=== PATIENT | female | born 2005 | race Caucasian/White ===

== ENCOUNTER 2025-04-07 20:32 | Emergency (ER) | payer OTHER ==
[~2025-04-07] VITALS: Ht 162.6 cm; Wt 60.0 kg
[~2025-04-07 20:32] MED LIST: CYCL10TA21 PO; DIAZ5TAB PO; LACO150T2 PO; LAM2 MT; LEVE1000 PO; PROP20TA7 PO; TETR12.52 PO; [UNRECOGNIZED DRUG - CODE]
[2025-04-07 20:37] VITALS: O2SAT 100
[2025-04-07 21:11] VITALS: BP 112/64; PULSE 102; RESP 13; TEMP 37.2; O2SAT 99
[2025-04-07 21:56] LABS: BASOPHILS % 0.3 % (0.0-2.0); EOSINOPHILS % 1.9 % (0.0-5.0); HEMATOCRIT. 35.0 % (36.0-48.0); HEMOGLOBIN. 11.9 g/dL (12.0-16.0); LYMPHOCYTES % 33.0 % (20.0-50.0); MEAN PLATELET VOLUME 7.9 fl (7.4-10.4); MONOCYTES % 5.4 % (2.0-8.0); NEUTROPHILS % 59.4 % (40.0-76.0); PLATELET 224 x1000/uL (130-400); RED BLOOD CELL COUNT 3.65 mill/uL (4.2-5.4); RED CELL DISTRIBUTION WIDTH 13.2 % (11.6-14.6)
[2025-04-07 22:16] LABS: HCG SCREEN NEGATIVE
[2025-04-07 22:17] LABS: INR 1.0
[2025-04-07 22:20] LABS: CREATININE 0.7 mg/dL (0.6-1.0)
[2025-04-07 22:21] LABS: ETHANOL BLOOD < 10 mg/dL (<10); TROPONIN I HIGH SENSITIVITY < 4 ng/L (3.0-34); UREA NITROGEN BLOOD 14 mg/dL (9-23)
[2025-04-07 22:22] LABS: ASPARTATE AMINOTRANSFERASE 13 IU/L (<34)
[2025-04-07 22:23] LABS: BILIRUBIN DIRECT < 0.1 mg/dL (<=3.0); BILIRUBIN TOTAL 0.5 mg/dL (0.1-1.0); PROTEIN TOTAL 5.7 g/dL (6.0-8.3)
[2025-04-08] MEDS ORDERED: LEVETIRACETAM 1000MG PREMIX 100 ML IV SCH (09:00)
== END 2025-04-07 23:30 | disposition left against medical advice (07) ==
LOC: ER 20:32 → EDBEDREQTM 22:47 → EDBEDREQ 22:47 → ER 23:30 → CANBEDREQ 04-08 00:07
DX: R56.9 Unspecified convulsions (principal); F17.200 Nicotine dependence, unspecified, uncomplicated; F12.90 Cannabis use, unspecified, uncomplicated; Z79.899 Other long term (current) drug therapy; Z98.890 Other specified postprocedural states
CPT/HCPCS: 36415; 71045; 80048; 80076; 80320; 84484; 84703; 85025; 93005; 99285; G0480

== ENCOUNTER 2025-04-20 19:55 | Emergency (ER) | payer OTHER ==
[~2025-04-20] VITALS: Ht 165.1 cm; Wt 64.0 kg
[2025-04-20 20:02] VITALS: BP 112/69; PULSE 94; RESP 14; TEMP 37.4; O2SAT 100
[2025-04-20] MEDS ORDERED: LEVETIRACETAM 1000MG PREMIX 100 ML IV ONE (20:15)
== END 2025-04-20 21:15 | disposition left against medical advice (07) ==
LOC: ER 19:55
DX: G40.909 Epilepsy, unspecified, not intractable, without status epilepticus (principal); F12.90 Cannabis use, unspecified, uncomplicated; Z91.148 Patient's other noncompliance with medication regimen for other reason; Z79.899 Other long term (current) drug therapy
CPT/HCPCS: 99283; J1953

== ENCOUNTER 2025-05-06 22:46 | Emergency (ER) | payer OTHER ==
[~2025-05-06] VITALS: Ht 165.1 cm; Wt 50.0 kg
[2025-05-06 22:49] VITALS: BP 100/65; PULSE 98; RESP 18; TEMP 36.8; O2SAT 99
[2025-05-06] MEDS ORDERED: LEVETIRACETAM 1000MG PREMIX 100 ML IV ONE (23:30)
== END 2025-05-06 23:50 | disposition left against medical advice (07) ==
LOC: ER 22:46
DX: R56.9 Unspecified convulsions (principal); F12.90 Cannabis use, unspecified, uncomplicated; Z79.899 Other long term (current) drug therapy
CPT/HCPCS: 99283

== ENCOUNTER 2025-07-11 07:22 | Emergency (ER) | payer OTHER ==
[~2025-07-11] VITALS: Ht 162.6 cm; Wt 55.0 kg
[2025-07-11 07:23] VITALS: O2SAT 97
[2025-07-11] MEDS: LORAZEPAM 2MG/ML UD SYRINGE ONE (07:45)
[2025-07-11] MEDS: LORAZEPAM 2MG/ML UD SYRINGE IM ONE (08:10)
[2025-07-11 08:17] LABS: BASOPHILS % 0.6 % (0.0-2.0); EOSINOPHILS % 1.7 % (0.0-5.0); HEMATOCRIT. 38.0 % (36.0-48.0); HEMOGLOBIN. 12.6 g/dL (12.0-16.0); LYMPHOCYTES % 39.9 % (20.0-50.0); MEAN PLATELET VOLUME 7.9 fl (7.4-10.4); MONOCYTES % 4.4 % (2.0-8.0); NEUTROPHILS % 53.4 % (40.0-76.0); PLATELET 273 x1000/uL (130-400); RED BLOOD CELL COUNT 3.96 mill/uL (4.2-5.4); RED CELL DISTRIBUTION WIDTH 13.5 % (11.6-14.6)
[2025-07-11 08:31] LABS: CREATININE 0.9 mg/dL (0.6-1.0); UREA NITROGEN BLOOD 13 mg/dL (9-23)
[2025-07-11] MEDS: LEVETIRACETAM 1000MG PREMIX 100 ML IV SCH (08:37)
[2025-07-11 08:44] LABS: HCG SCREEN NEGATIVE
[2025-07-11 09:30] VITALS: TEMP 36.9
[2025-07-11 09:49] VITALS: TEMP 98.42
[2025-07-11] MEDS ORDERED: ACETAMINOPHEN 325MG TABLET PO PRN ×2 (10:45)
[2025-07-11] MEDS ORDERED: DOCUSATE SODIUM 100MG CAPSULE PO PRN (10:45)
[2025-07-11] MEDS ORDERED: ONDANSETRON HCL 4MG/2ML INJ IV PRN (10:45)
[2025-07-11] MEDS ORDERED: CLONIDINE 0.1MG TABLET PO PRN (10:45)
[2025-07-11] MEDS ORDERED: IPRATROPIUM/ALBUTEROL 0.5-3(2.5)MG/3ML NEB HHN PRN (10:45)
[2025-07-11] MEDS: LORAZEPAM 2MG/ML UD SYRINGE IV PRN (10:48)
[2025-07-11] MEDS: SODIUM CHLORIDE 0.9% 1,000 ML IV SCH (10:53)
[2025-07-11] MEDS: LAMOTRIGINE 100MG TABLET PO SCH (11:02)
[2025-07-11] MEDS ORDERED: ENOXAPARIN 40MG/0.4ML SYR SUBCUT SCH (12:00)
[2025-07-11 12:07] LABS: CLARITY URINE CLEAR (CLEAR); COLOR URINE YELLOW (YELLOW); GLUCOSE URINE NEGATIVE (NEGATIVE); KETONES URINE NEGATIVE (NEGATIVE); LEUKOCYTE ESTERASE URINE NEGATIVE (NEGATIVE); NITRITE URINE NEGATIVE (NEGATIVE); OCCULT BLOOD URINE 2+ (NEGATIVE); PH URINE 7.0 (4.5-8.0); PROTEIN URINE NEGATIVE (NEGATIVE); SPECIFIC GRAVITY URINE 1.008 (1.005-1.030); UROBILINOGEN URINE 0.2 E.U./dL (0.2-1.0)
[2025-07-11 12:28] LABS: *AMPHETAMINES SCREEN URINE NEGATIVE (NEGATIVE)
[2025-07-11 12:29] LABS: *BARBITURATES SCREEN URINE NEGATIVE (NEGATIVE); *BENZODIAZEPINES SCREEN URINE PRESUMPTIVE POSITIVE (NEGATIVE); *COCAINE SCREEN URINE NEGATIVE (NEGATIVE); CANNABINOID URINE SCREEN PRESUMPTIVE POSITIVE (NEGATIVE); ECSTASY MDMA SCREEN URINE NEGATIVE (NEGATIVE); METHADONE URINE SCREEN NEGATIVE (NEGATIVE); OPIATES URINE SCREEN NEGATIVE (NEGATIVE); PHENCYCLIDINE URINE SCREEN NEGATIVE (NEGATIVE)
[2025-07-11 12:46] VITALS: BP 104/76; PULSE 90; RESP 14; O2SAT 98
[2025-07-11] MEDS ORDERED: LEVETIRACETAM 1000MG PREMIX 100 ML IV SCH (21:00)
[2025-07-11] MEDS ORDERED: PROPRANOLOL HCL 10MG TABLET PO SCH (21:00)
== END 2025-07-11 13:15 | disposition left against medical advice (07) ==
LOC: ER 07:22 → EDBEDREQTM 09:42 → EDBEDREQ 09:42 → ER 13:15 → ENRESERV 13:22 → CANBEDREQ 13:29
DX: G40.409 Other generalized epilepsy and epileptic syndromes, not intractable, without status epilepticus (principal)
CPT/HCPCS: 80305; 80048; 81003; 80320; 82550; 82962; 84703; 83735; 85025; 36415; 80339; 70450; 93005; 96361; 96372; 96374; 96375; 99285; J1953; J2060; J7030; Z7610 ×3; G0480

== ENCOUNTER 2025-07-30 18:20 | Emergency (ER) | payer OTHER ==
[~2025-07-30] VITALS: Ht 170.2 cm; Wt 45.0 kg
[2025-07-30 18:25] VITALS: O2SAT 99
[2025-07-30] MEDS: LORAZEPAM 2MG/ML UD SYRINGE IV NR (19:03)
[2025-07-30] MEDS: KETOROLAC 15MG/ML VIAL IV ONE (19:03)
[2025-07-30] MEDS: LEVETIRACETAM 1000MG PREMIX 100 ML IV ONE (19:03)
[2025-07-30] MEDS: SODIUM CHLORIDE 0.9% 1,000 ML IV ONE (19:04)
[2025-07-30 19:56] LABS: BASOPHILS % 0.7 % (0.0-2.0); EOSINOPHILS % 2.3 % (0.0-5.0); HEMATOCRIT. 36.9 % (36.0-48.0); HEMOGLOBIN. 12.5 g/dL (12.0-16.0); LYMPHOCYTES % 41.3 % (20.0-50.0); MEAN PLATELET VOLUME 7.8 fl (7.4-10.4); MONOCYTES % 5.2 % (2.0-8.0); NEUTROPHILS % 50.5 % (40.0-76.0); PLATELET 263 x1000/uL (130-400); RED BLOOD CELL COUNT 3.90 mill/uL (4.2-5.4); RED CELL DISTRIBUTION WIDTH 13.5 % (11.6-14.6)
[2025-07-30 20:08] LABS: CREATININE 0.9 mg/dL (0.6-1.0); UREA NITROGEN BLOOD 13 mg/dL (9-23)
[2025-07-30 20:09] LABS: ETHANOL BLOOD < 10 mg/dL (<10)
[2025-07-30 20:10] LABS: ASPARTATE AMINOTRANSFERASE 26 IU/L (<34); BILIRUBIN DIRECT 0.1 mg/dL (<=3.0); BILIRUBIN TOTAL 0.4 mg/dL (0.1-1.0)
[2025-07-30 20:11] LABS: PROTEIN TOTAL 6.1 g/dL (6.0-8.3)
[2025-07-30 20:20] LABS: HCG SCREEN NEGATIVE
[2025-07-30] MEDS ORDERED: LACO150T2 PO (20:34)
[2025-07-30] MEDS ORDERED: LEVE1000 PO (20:34)
[2025-07-30] MEDS ORDERED: LAM2 MT (20:34)
[2025-07-30 21:53] VITALS: BP 100/70; PULSE 98; RESP 12; TEMP 36.7; O2SAT 99
== END 2025-07-30 21:56 | disposition home or self-care (01) ==
LOC: ER 18:20 → CMPBEDREQ 07-31 08:10
DX: R56.9 Unspecified convulsions (principal); Z79.899 Other long term (current) drug therapy
CPT/HCPCS: 80076; 80048; 80320; 84703; 83735; 85025; 36415; 93005; 96365; 96375; 99285; J1953; J1885; J2060; J7030; Z7610; A4606; G0480

== ENCOUNTER 2025-08-29 12:02 | Emergency (ER) | payer OTHER ==
[~2025-08-29] VITALS: Ht 165.1 cm; Wt 70.0 kg
[2025-08-29 12:03] VITALS: O2SAT 100
[2025-08-29 12:18] VITALS: BP 112/78; PULSE 79; RESP 16; TEMP 37; O2SAT 99
== END 2025-08-29 12:42 | disposition home or self-care (01) ==
LOC: ER 12:02
DX: G40.909 Epilepsy, unspecified, not intractable, without status epilepticus (principal); Z79.899 Other long term (current) drug therapy; F12.90 Cannabis use, unspecified, uncomplicated; F32.A Depression, unspecified
CPT/HCPCS: 99283